=== PATIENT | female | born 1980 | race Caucasian/White ===

== ENCOUNTER 2017-05-09 16:53 | Inpatient (IN) | payer MEDICAID ==
[~2017-05-09] VITALS: Ht 152.4 cm; Wt 113.5 kg
[~2017-05-09 16:53] MED LIST: OXYTOCIN 30 UNITS/LR 500 ML BAG IV ONE; PREN1TAB12 PO
--- NOTE | 2017-05-09 17:34 | RADRPT ---
PROCEDURE: US OB biophysical profile. CLINICAL INDICATION: evaluation, high blood pressure TECHNIQUE: Multiple sonographic images of the pelvis were obtained. The images were reviewed on a PACS workstation. COMPARISON: No prior studies are available for comparison. FINDINGS: There is a single viable intrauterine gestation. Cardiac activity is present with 139 beats per min anahi. There is a vertex presentation. The placenta is fundal. There is no evidence of placental abruption. There is a normal amount of amniotic fluid with an BRAYDEN = 13.6 cm. Biophysical profile: movement 2/2 tone 2/2. breathing 2/2 BRAYDEN 2/2 Total 05/17 RPTAT: AA . IMPRESSION: Normal biophysical profile. Physician Elvis Date Time Electronically viewed and signed by Physician Elvis on 05/09/2017 17:34 /
[2017-05-09 17:45] LABS: BASOPHILS % 0.5 % (0.0-2.0); EOSINOPHILS # 0.1 10^3/ul (0.0-0.5); EOSINOPHILS % 1.1 % (0.0-7.0); HEMATOCRIT 29.7 % (37.0-47.0); HEMOGLOBIN 9.6 g/dl (12.0-16.0); LYMPHOCYTES % 33.1 % (15.0-51.0); MEAN CORPUSCULAR HEMOGLOBIN 23.9 pg (29.0-33.0); MEAN CORPUSCULAR HGB CONC 32.3 g/dl (32.0-37.0); MEAN CORPUSCULAR VOLUME 74.1 fl (82.0-101.0); MONOCYTE # 0.4 10^3/ul (0.3-0.9); MONOCYTES % 6.7 % (0.0-11.0); NEUTROPHIL # 3.5 10^3/ul (1.6-7.5); NEUTROPHILS % 58.1 % (39.0-77.0); PLATELET COUNT 203 10^3/UL (140-415); RED BLOOD COUNT 4.01 10^6/ul (4.20-5.40); RED CELL DISTRIBUTION WIDTH 14.6 % (11.5-14.5); WHITE BLOOD COUNT 6.1 10^3/ul (4.8-10.8)
[2017-05-09 17:58] VITALS: Ht 152.4 cm; Wt 113.5 kg
[2017-05-09 17:59] VITALS: BP 128/63; PULSE 67; RESP 18
[2017-05-09] MEDS ORDERED: AMO500 PO (18:05)
[2017-05-09 18:13] LABS: ALBUMIN 3.2 g/dl (3.3-4.9); ALBUMIN/GLOBULIN RATIO 0.84; BILIRUBIN,INDIRECT 0.1 mg/dl (0-1.1); BILIRUBIN,TOTAL 0.1 mg/dl (0.2-1.3); CALCIUM 8.6 mg/dl (8.4-10.2); CREATININE 0.65 mg/dl (0.44-1.00); POTASSIUM 4.3 mmol/L (3.5-5.1); URIC ACID 5.3 mg/dl (3.1-7.9)
--- NOTE | 2017-05-09 18:59 | TRIAGE ---
OB Triage Datetime Report Generated by CPN: 05/09/2017 18:59 Datetime: 05/09/2017 18:42 Labor Evaluation Frequency: 3-4 Monitor Mode: External Duration (sec)2399: 50-80 Quality: Mild Pattern: Normal: <= 5 Contractions in 10 Minutes Resting Tone [place]: Relaxed Heart Rate FHR Baseline Rate: 150 Monitor Mode: External US FHR Baseline Changes: No Baseline Change Variability: Moderate 6-25 bpm Accelerations: 15X15 Decelerations: None Category: Category I Vaginal Exam Membrane Status: Intact Datetime: 05/09/2017 18:16 Labor Evaluation Frequency: 3-5 Monitor Mode: External Duration (sec)2399: 60-80 Quality: Mild Pattern: Normal: <= 5 Contractions in 10 Minutes Resting Tone [place]: Relaxed Heart Rate FHR Baseline Rate: 150 Monitor Mode: External US FHR Baseline Changes: No Baseline Change Variability: Moderate 6-25 bpm Accelerations: 15X15 Decelerations: None Category: Category I Datetime: 05/09/2017 17:52 Headache: Denies Labor Evaluation Frequency: x2 Monitor Mode: External Duration (sec)2399: 60-70 Quality: Mild Pattern: Normal: <= 5 Contractions in 10 Minutes Resting Tone [place]: Relaxed Heart Rate FHR Baseline Rate: 150 Monitor Mode: External US FHR Baseline Changes: No Baseline Change Variability: Moderate 6-25 bpm Accelerations: 15X15 Decelerations: None Category: Category I Vaginal Exam Membrane Status: Intact Datetime: 05/09/2017 17:18 Stage of : OB Triage Time of Arrival: 05/09/2017 16:46 EGA: 38.5 Arrived By: Ambulatory Arrived From: Office Chief Complaint: R/O PIH Movement: Present Rupture of Membranes: Denies Vaginal Discharge: Denies Recent Sexual Intercouse: Denies Abdominal Trauma: Not Applicable Patient Complaints: Other Time Provider Notified: 05/09/2017 17:38 Provider Notified: DELSHAD Initial Plan: PIH PANEL, CBC, CMP, URIC ACID, UA, U/S EFW, Maternal Assessment Level of Consciousness: Fully Conscious DTR's/Clonus: DTRs 2+; No Clonus Headache: Denies Blurred Vision: No Respiratory Effort: Unlabored Breath Sounds, Left: Clear and Equal Breath Sounds, Right: Clear and Equal Nausea/Vomiting: Denies RUQ Epigastric Pain: Denies Facial Edema: None Labor Evaluation Frequency: X1 Monitor Mode: External Duration (sec)2399: 50 Quality: Mild Pattern: Normal: <= 5 Contractions in 10 Minutes Resting Tone [place]: Relaxed Heart Rate FHR Baseline Rate: 150 Monitor Mode: External US FHR Baseline Changes: No Baseline Change Variability: Moderate 6-25 bpm Accelerations: 15X15 Decelerations: None Category: Category I Pain Assessment Pain Scale: 2 Pain Presence: Intermittent Pain Type: Contraction Pain Location: Abdomen Pain Goal: 10 Pain Relief Measures: Comfort Measures Vaginal Exam Membrane Status: Intact
[2017-05-09] MEDS ORDERED: OXYTOCIN 30 UNITS/LR 500 ML IV PRN (19:30)
[2017-05-09] MEDS ORDERED: MISOPROSTOL 200 MCG TAB PR PRN (19:30)
[2017-05-09] MEDS ORDERED: CARBOPROST 250 MCG INJ IM PRN (19:30)
[2017-05-09] MEDS ORDERED: CEFAZOLIN 2 GM/50 ML (PMX) 50 ML IV SCH (19:30)
[2017-05-09] MEDS ORDERED: OXYTOCIN 30 UNITS/LR 500 ML IV SCH (19:30)
[2017-05-09] MEDS ORDERED: METHYLERGONOVINE 0.2 MG INJ IM PRN (19:30)
[2017-05-09] MEDS ORDERED: DEXTROSE 5%-LR 1,000 ML IV SCH (19:38)
[2017-05-09] MEDS ORDERED: FAMOTIDINE 20 MG INJ IV ONE (20:00)
[2017-05-09 20:18] LABS: ADD UMIC YES; UR ASCORBIC ACID NEGATIVE (NEGATIVE); UR BACTERIA FEW /HPF (NONE SEEN); UR BILIRUBIN (Dip) NEGATIVE (NEGATIVE); UR BLOOD (Dip) 1+ mg/dL (NEGATIVE); UR CLARITY CLEAR (CLEAR); UR COLOR YELLOW (YELLOW); UR GLUCOSE (Dip) NEGATIVE (NEGATIVE); UR KETONES (Dip) NEGATIVE (NEGATIVE); UR LEUKOCYTE ESTERASE (Dip) 2+ Leu/ul (NEGATIVE); UR NITRITE (Dip) NEGATIVE (NEGATIVE); UR RBC 2 /HPF (0-5); UR SPECIFIC GRAVITY (Dip) 1.012 (1.003-1.030); UR SQUAMOUS EPITHELIAL CELL FEW /HPF (FEW); UR TOTAL PROTEIN (Dip) 2+ mg/dl (NEGATIVE); UR UROBILINOGEN (Dip) NEGATIVE (NEGATIVE)
[2017-05-09 20:25] LABS: INR 0.89; PT RATIO 0.9
[2017-05-09] MEDS ORDERED: LACTATED RINGER'S 1,000 ML IV SCH (20:30)
[2017-05-09] MEDS ORDERED: METOCLOPRAMIDE 10 MG INJ IV ONE (21:00)
[2017-05-09] MEDS ORDERED: EPHEDrine SULFATE 50 MG/5 ML SYG ONE (21:01)
[2017-05-09] MEDS ORDERED: PHENYLephrine (100 MCG/ML) 5ML SYG ONE (21:01)
[2017-05-09] MEDS ORDERED: morphine SULFATE/PF (10 MG/10 ML) INJ ONE (21:01)
[2017-05-09] MEDS ORDERED: FENTAnyl 50 MCG/ML VIAL ONE (21:01)
[2017-05-09] MEDS ORDERED: ONDANSETRON 4 MG INJ ONE (21:22)
[2017-05-09] MEDS ORDERED: TRIMETHOBENZAMIDE 100 MG/ML VIAL IM PRN (22:00)
[2017-05-09] MEDS ORDERED: NALOXONE (0.4 MG/ML) INJ IV PRN (22:00)
[2017-05-09] MEDS ORDERED: ZOLPIDEM 5 MG TAB PO PRN (22:00)
[2017-05-09] MEDS ORDERED: ONDANSETRON 4 MG INJ IV PRN (22:00)
[2017-05-09] MEDS ORDERED: DIPHENHYDRAMINE 50 MG INJ IV PRN (22:00)
[2017-05-09] MEDS ORDERED: NALBUPHINE HCL (10 MG/1 ML) INJ IV PRN (22:00)
[2017-05-10] VITALS (9 sets, daily range): BP systolic 115–152; BP diastolic 69–86; PULSE 58–64; RESP 18–20
[2017-05-10] MEDS: KETOROLAC 30 MG INJ IV PRN ×4 (00:22→21:16)
--- NOTE | 2017-05-10 00:36 | PREOPHP ---
DATE OF ADMISSION: 05/09/2017 HISTORY OF PRESENT ILLNESS: A 37-year-old female, 4, para 2-0-1-2. Estimated date of delivery 05/18/2017 38 weeks and 5 days who was noted to have high blood pressure. PAST MEDICAL HISTORY: Unremarkable. PAST SURGICAL HISTORY: section x2. ALLERGIES: NO KNOWN ALLERGIES. FAMILY HISTORY: Diabetes. COURSE: Significant for gestational diabetes. PHYSICAL EXAMINATION: VITAL SIGNS: The patient is afebrile. Blood pressure, 130's to 140s over 80s and 90s. HEENT: Within normal limits. NECK: Within normal limits. CHEST: Within normal limits. ABDOMEN: Soft, nontender, and gravid. EXTREMITIES: Within normal limits. NEUROLOGIC: Within normal limits. IMPRESSION: 1. at 38 weeks and 5 days. 2. Gestational diabetes. 3. Previous section x2. 4. Preeclampsia. PLAN: Repeat section. Risks, benefits, and alternatives of procedure were explained to the patient. The patient said she understood and gave informed consent for the procedure. Dictated By: Martin Delgado MD /[email or web address] /Document#: [id number] ANGELIC
--- NOTE | 2017-05-10 01:12 | OPR ---
DATE OF OPERATION: 05/09/2017 PREOPERATIVE DIAGNOSES: 1. at 38 weeks and 5 days with previous section x2. 2. Gestational diabetes. 3. Preeclampsia. POSTOPERATIVE DIAGNOSIS: 1. at 38 weeks and 5 days with previous section x2. 2. Gestational diabetes. 3. Preeclampsia. OPERATION: Repeat low transverse section. SURGEON: Martin Delgado MD PLEAT TAPER: Debi Wagner MD ANESTHESIA: Spinal. ANESTHESIOLOGIST: Andrew Rai MD OPERATIVE PROCEDURE: The patient was taken to the operating room and placed on the operating table. After successful spinal anesthesia was given, the patient was positioned in the Trendelenburg position. The abdomen was prepared and draped in the usual sterile fashion. Spinal anesthesia was assessed and was satisfactory. Using a scalpel, a Pfannenstiel skin incision was made about 2 fingerbreadths above the symphysis pubis. The incision was extended to the fascia. The fascia was incised and extended bilaterally with Burnham scissors. Two Kochers were used to separate the fascia from the muscle and the muscle was dissected down to the peritoneum. The peritoneum was secured with 2 Kellys was incised with Metzenbaum scissors. Using a scalpel, a small transverse incision was made on the lower segment of the uterus, obtaining entry into the uterine cavity. Bandage scissors used to extend the incision bilaterally. Carefully, the baby was delivered from cephalic presentation. After suction of amniotic fluid, the infant was handed off to the team in attendance. score was 8 and 9. The placenta was then delivered without difficulty. The uterus was closed with number 1 Monocryl continuous locked fashion with hemostasis. Both ovaries and tubes were inspected and all looked normal. The peritoneal cavity was irrigated with warm normal saline. The peritoneum was closed with 2-0 Vicryl continuous, the fascia was closed with number 1 Vicryl continuous in 2 segments, subcutaneous tissue was reapproximated with 2-0 plain, and the skin was closed with jack. Estimated blood loss was 500 mL. Complications none. All counts were correct. Dictated By: Maritn Delgado MD /[email or web address] /Document#: [id number]
[2017-05-10] MEDS: LACTATED RINGER'S 1,000 ML IV SCH ×3 (01:37→20:09)
[2017-05-10] MEDS ORDERED: MISOPROSTOL 200 MCG TAB PR PRN (02:00)
[2017-05-10] MEDS ORDERED: CARBOPROST 250 MCG INJ IM PRN (02:00)
[2017-05-10] MEDS ORDERED: OXYCODONE/ACETAMINOPHEN (5/325) TAB PO PRN (02:00)
[2017-05-10] MEDS ORDERED: OXYTOCIN 30 UNITS/LR 500 ML IV PRN (02:00)
[2017-05-10] MEDS ORDERED: METHYLERGONOVINE 0.2 MG INJ IM PRN (02:00)
[2017-05-10] MEDS: OXYTOCIN 30 UNITS/LR 500 ML IV SCH ×2 (02:37→06:14)
[2017-05-10] MEDS: LANOLIN 7 GM TUBE TOP PRN (06:14)
[2017-05-10] MEDS: SENNA/DOCUSATE NA (8.6MG/50MG) TAB PO SCH ×2 (08:58→20:09)
[2017-05-10 09:13] LABS: BASOPHILS % 0.3 % (0.0-2.0); EOSINOPHILS % 0.1 % (0.0-7.0); HEMATOCRIT 29.9 % (37.0-47.0); HEMOGLOBIN 9.4 g/dl (12.0-16.0); LYMPHOCYTES # 1.4 10^3/ul (0.8-2.9); LYMPHOCYTES % 15.7 % (15.0-51.0); MEAN CORPUSCULAR HEMOGLOBIN 23.4 pg (29.0-33.0); MEAN CORPUSCULAR HGB CONC 31.4 g/dl (32.0-37.0); MEAN CORPUSCULAR VOLUME 74.6 fl (82.0-101.0); MEAN PLATELET VOLUME 11.4 fl (7.4-10.4); MONOCYTE # 0.5 10^3/ul (0.3-0.9); MONOCYTES % 5.4 % (0.0-11.0); NEUTROPHIL # 7.1 10^3/ul (1.6-7.5); NEUTROPHILS % 78.1 % (39.0-77.0); PLATELET COUNT 207 10^3/UL (140-415); RED BLOOD COUNT 4.01 10^6/ul (4.20-5.40); RED CELL DISTRIBUTION WIDTH 14.7 % (11.5-14.5); WHITE BLOOD COUNT 9.1 10^3/ul (4.8-10.8)
--- NOTE | 2017-05-10 11:18 | QN ---
Documentation Comment No complaint Afebrile VSS Abdomen soft ND POD #1 Stable Ambulate Advance diet. TERI RIVERA MD May 10, 2017 11:18
[2017-05-10] MEDS ORDERED: LACTATED RINGER'S 1,000 ML IV ONE (11:30)
[2017-05-10] MEDS: IBUPROFEN 800 MG TAB PO SCH (22:00)
[2017-05-11] MEDS: LACTATED RINGER'S 1,000 ML IV SCH (01:37)
[2017-05-11 04:00] VITALS: BP 118/75; PULSE 66; RESP 17
[2017-05-11] MEDS: IBUPROFEN 800 MG TAB PO SCH ×3 (05:35→21:36)
[2017-05-11] MEDS: SENNA/DOCUSATE NA (8.6MG/50MG) TAB PO SCH ×2 (08:02→21:36)
[2017-05-11 08:03] VITALS: BP 134/74; PULSE 59; RESP 19
[2017-05-11] MEDS: OXYCODONE/ACETAMINOPHEN (5/325) TAB PO PRN ×2 (08:03→17:36)
[2017-05-11 16:00] VITALS: BP 138/81; PULSE 62; RESP 19
[2017-05-11 19:50] VITALS: BP 136/76; PULSE 67; RESP 18
--- NOTE | 2017-05-11 22:31 | QN ---
Documentation Comment No complaint Afebrile VSS Abdomen soft Stable Continue present care. TERI RIVERA MD May 11, 2017 22:31
[2017-05-12] MEDS: OXYCODONE/ACETAMINOPHEN (5/325) TAB PO PRN ×3 (01:15→17:58)
[2017-05-12 03:30] VITALS: BP 154/91; PULSE 58; RESP 18
[2017-05-12] MEDS: IBUPROFEN 800 MG TAB PO SCH ×2 (05:30→13:33)
[2017-05-12 07:25] VITALS: BP_SYST 126; BP_SYST 137; BP_DIAS 78; BP_DIAS 81; PULSE 72; RESP 19
[2017-05-12] MEDS ORDERED: DIPHTH/TET/ACEL PERTUSS (ADULT) 0.5 ML VIAL IM* ONE (09:00)
[2017-05-12] MEDS: SENNA/DOCUSATE NA (8.6MG/50MG) TAB PO SCH ×2 (09:55→21:00)
[2017-05-12] MEDS: LANOLIN 7 GM TUBE TOP PRN (13:38)
[2017-05-12 16:03] VITALS: BP 137/81; PULSE 65; RESP 18
[2017-05-12] MEDS ORDERED: IBUP800T25 PO (20:20)
--- NOTE | 2017-05-12 20:22 | DS ---
Date/Time of Note Date/Time of Note DATE: 05/12/17 TIME: 20:20 Obstetrical Discharge Record Final Diagnosis Final Diagnosis: Term delivered Section Section: Repeat Complications Preg induced Hypertension Condition on Discharge Physical Assessment Voiding: Yes Bowel Movement: Yes Breast: Soft, non-tender Fundus: Firm Abdomen and Incision: Incision intact Calf Tenderness: No Patient Condition: Stable TERI RIVERA MD May 12, 2017 20:22
[2017-05-12 20:27] VITALS: BP 136/85; PULSE 72; RESP 18
== END 2017-05-12 21:19 | disposition home or self-care (01) | DRG 765 ==
LOC: OBT 16:53 → L-D 16:53 → OBT 18:54 → L-D 18:54 → PP1 05-10 01:14
PROVIDERS: ADMIT Obstetrics & Gynecology; ATTEND Obstetrics & Gynecology
PROC: 3E033VJ Introduction of Other Hormone into Peripheral Vein, Percutaneous Approach (ICD-10-PCS; 2017-05-09)
PROC: 10D00Z1 Extraction of Products of Conception, Low, Open Approach (ICD-10-PCS; principal; 2017-05-09 21:00)
DX: O34.211 Maternal care for low transverse scar from previous cesarean delivery (principal); Z68.42 Body mass index [BMI] 45.0-49.9, adult; O24.429 Gestational diabetes mellitus in childbirth, unspecified control; O14.94 Unspecified pre-eclampsia, complicating childbirth; O99.214 Obesity complicating childbirth; E66.9 Obesity, unspecified; Z3A.38 38 weeks gestation of pregnancy; Z37.0 Single live birth
CPT/HCPCS: 76818; 80053; 81001; 82962; 84560; 85025; 85610; 85730; 86592; 86850; 86900; 86901; 87340; 90715; 99464; G0463; J0690; J1885; J2274; J2370; J2405; J2590; J2765; J3010; J7120; J7121

== ENCOUNTER 2017-05-16 15:18 | Inpatient (IN) | payer MEDICAID ==
[~2017-05-16] VITALS: Ht 157.5 cm; Wt 106.0 kg
[~2017-05-16 15:18] MED LIST changes: +IBUP800T25 PO; -OXYTOCIN 30 UNITS/LR 500 ML BAG IV ONE
[2017-05-16 15:19] VITALS: Ht 157.5 cm; Wt 106.0 kg
[2017-05-16 16:34] LABS: BASOPHILS % 0.5 % (0.0-2.0); EOSINOPHILS # 0.1 10^3/ul (0.0-0.5); EOSINOPHILS % 2.2 % (0.0-7.0); HEMATOCRIT 29.3 % (37.0-47.0); HEMOGLOBIN 9.2 g/dl (12.0-16.0); LYMPHOCYTES # 1.1 10^3/ul (0.8-2.9); LYMPHOCYTES % 17.3 % (15.0-51.0); MEAN CORPUSCULAR HEMOGLOBIN 23.6 pg (29.0-33.0); MEAN CORPUSCULAR HGB CONC 31.4 g/dl (32.0-37.0); MEAN CORPUSCULAR VOLUME 75.1 fl (82.0-101.0); MONOCYTE # 0.4 10^3/ul (0.3-0.9); MONOCYTES % 7.1 % (0.0-11.0); NEUTROPHIL # 4.5 10^3/ul (1.6-7.5); NEUTROPHILS % 72.3 % (39.0-77.0); PLATELET COUNT 286 10^3/UL (140-415); RED CELL DISTRIBUTION WIDTH 15.6 % (11.5-14.5); WHITE BLOOD COUNT 6.2 10^3/ul (4.8-10.8)
--- NOTE | 2017-05-16 16:45 | RADRPT ---
PROCEDURE: US Pelvis. CLINICAL INDICATION: pelvic pain TECHNIQUE: Multiple sonographic images of the pelvis were obtained utilizing a transabdominal and endovaginal technique. The images were reviewed on a PACS workstation. COMPARISON: 05/09/2017 FINDINGS: The uterus is enlarged in size. The uterus measures 18.5 x 9.3 x 14.6 cm. The endometrial stripe is heterogeneous and thickened in appearance and has the thickness of 40 mm. There is fluid noted in the endometrial canal. There is no increased vascularity. The ovaries are not visualized. No free fluid is present within the pelvis. RPTAT: AA IMPRESSION: Enlarged post gravid uterus with a thickened and heterogeneous endometrium. No increased vascularit y is noted. The findings may represent a retained hematoma. Follow-up ultrasound is recommended. .Giorgio Upton MD, MD Date Time Electronically viewed and signed by .Giorgio Upton MD, MD on 05/16/2017 16:45 .S/
[2017-05-16 16:53] LABS: ALBUMIN 3.1 g/dl (3.3-4.9); ALBUMIN/GLOBULIN RATIO 0.81; BILIRUBIN,INDIRECT 0.2 mg/dl (0-1.1); BILIRUBIN,TOTAL 0.2 mg/dl (0.2-1.3); CALCIUM 8.1 mg/dl (8.4-10.2); CREATININE 0.59 mg/dl (0.44-1.00); POTASSIUM 4.2 mmol/L (3.5-5.1); TOTAL PROTEIN 6.9 g/dl (6.1-8.1)
[2017-05-16 16:54] LABS: INR 0.91; PROTIME 12.2 Sec (12.2-14.2)
[2017-05-16 16:55] LABS: PARTIAL THROMBOPLASTIN TIME 24.3 Sec (25.0-35.0)
--- NOTE | 2017-05-16 16:58 | ERD ---
ER Documentation Chief Complaint Date/Time DATE: 05/16/17 TIME: 16:52 Chief Complaint Sent from for eval Post Placenta Previa HPI This is a very pleasant 37-year-old female that presents to the emergency department after sent by her BUSINESS DEVELOPMENT ASSISTANT Dr. Can for evaluation and possible preeclampsia. The patient had a section performed May 09, 2017, 7 days prior to arrival. The patient was seen postoperatively today in the clinic of her BUSINESS DEVELOPMENT ASSISTANT and had an elevated blood pressure of 178/94. The patient has no history of hypertension. The patient indicates she has had no fevers or shaking no chills. The patient states this is not her first she did not have a significant amount of weight gain and denies any swelling of her lower extremities. She denies any abdominal pain. She has no shortness of breath. She denies a headache or visual changes. She denies any frequency urgency or dysuria or gross hematuria. The patient does not wear glasses or contacts. The patient denies any confusion and her is present states there is been no changes in her mental status. She has no shortness of breath at rest or exertion. She has had no seizure-like activity. ROS All systems reviewed and are negative except as per history of present illness. Medications Home Meds Active Scripts Ibuprofen* (Ibuprofen*) 800 Mg Tablet, 800 MG PO Q8 Y for PAIN, #30 TAB 0 Refills Prov:TERI RIVERA MD 05/12/17 Reported Medications Vit/Fe Fumarate/Fa ( 1-1 Tablet) 1 Tab Tablet, 1 TAB PO DAILY 10/25/12 Discontinued Reported Medications Amoxicillin* (Amoxicillin*) 500 Mg Cap, 500 MG PO BID, #20 CAP 05/09/17 Allergies Allergies: Coded Allergies: No Known Drug Allergies (Verified Allergy, Unknown, 05/09/17) PMhx/Soc History of Surgery: No Anesthesia Reaction: No Hx Neurological Disorder: No Hx Respiratory Disorders: No Hx Cardiac Disorders: Yes (HTN) Hx Psychiatric Problems: No Hx Miscellaneous Medical Probl: No Hx Alcohol Use: No Hx Substance Use: No Hx Tobacco Use: No Smoking Status: Never smoker Physical Exam Vitals Vital Signs Date Time Temp Pulse Resp B/P Pulse Ox O2 Delivery O2 Flow Rate FiO2 05/16/17 17:34 98.9 60 18 185/98 100 Room Air 05/16/17 15:19 99.0 72 20 182/86 98 Physical Exam Constitutional:Well-developed. Well-nourished. HEENT:Normocephalic. Atraumatic.Pupils were equal round reactive to light. Moist mucous membranes.No tonsillar exudates. Funduscopy exam shows sharp optic disc bilaterally venous pulsations are present. Visual acuity is 20/20 bilaterally Neck: No nuchal rigidity. No lymphadenopathy. No posterior cervical spine tenderness or step-offs. Respiratory: Not using accessory muscles of respiration.Lungs were clear to auscultation bilaterally. No rhonchi. No rales. No wheezing. Cardiovascular: Regular rate regular rhythm.No murmurs. No rubs were appreciated.S1, S2 normal. Distal pulses are palpable 2+ bilaterally. GI: Abdomen was obese. Nontender. Horizontal surgical incision scar from previous section is clean dry and intact with no wound dehiscence. No reproducible tenderness in the epigastric or right upper quadrant. Non Distended. No pulsatile abdominal masses or bruits. No rebound. No guarding. Bowel sounds were present and normal. Muscle skeletal: Full range of motion of both the upper and lower extremities bilaterally.Normal muscle tone.No assymetrical calf tenderness or swelling. Skin: No petechia, no purpura. No lesions on the palms or the soles of the feet. No maculopapular rash. NEURO: Patient was alert, awake, orientated x3.No facial droop. Gait observed and normal with no ataxia.Speech had regular rate and rhythm. No focal neurological deficits. Deep tendon reflexes were normal with no hyperreflexia. Result Diagram: 05/16/17 1615 05/16/17 1615 Results 24 hrs Laboratory Tests Test 05/16/17 16:15 05/16/17 16:45 White Blood Count 6.210^3/ul Red Blood Count 3.9010^6/ul Hemoglobin 9.2g/dl Hematocrit 29.3% Mean Corpuscular Volume 75.1fl Mean Corpuscular Hemoglobin 23.6pg Mean Corpuscular Hemoglobin Concent 31.4g/dl Red Cell Distribution Width 15.6% Platelet Count 11934^3/UL Mean Platelet Volume 10.0fl Neutrophils % 72.3% Lymphocytes % 17.3% Monocytes % 7.1% Eosinophils % 2.2% Basophils % 0.5% Nucleated Red Blood Cells % 0.0/100WBC Neutrophils # 4.510^3/ul Lymphocytes # 1.110^3/ul Monocytes # 0.410^3/ul Eosinophils # 0.110^3/ul Basophils # 0.010^3/ul Nucleated Red Blood Cells # 0.010^3/ul Prothrombin Time 12.2Sec Prothrombin Time Ratio 1.0 INR International Normalized Ratio 0.91 Activated Partial Thromboplast Time 24.3Sec Sodium Level 142mmol/L Potassium Level 4.2mmol/L Chloride Level 104mmol/L Carbon Dioxide Level 25mmol/L Anion Gap 17 Blood Urea Nitrogen 14mg/dl Creatinine 0.59mg/dl Glucose Level 91mg/dl Uric Acid 5.5mg/dl Calcium Level 8.1mg/dl Total Bilirubin 0.2mg/dl Direct Bilirubin 0.00mg/dl Indirect Bilirubin 0.2mg/dl Aspartate Amino Transf (AST/SGOT) 52IU/L Alanine Aminotransferase (ALT/SGPT) 77IU/L Alkaline Phosphatase 162IU/L Troponin I < 0.012ng/ml Total Protein 6.9g/dl Albumin 3.1g/dl Globulin 3.80g/dl Albumin/Globulin Ratio 0.81 Urine Color YELLOW Urine Clarity CLEAR Urine pH 6.0 Urine Specific [place] 1.012 Urine Ketones NEGATIVEmg/dL Urine Nitrite NEGATIVEmg/dL Urine Bilirubin NEGATIVEmg/dL Urine Urobilinogen NEGATIVEmg/dL Urine Leukocyte Esterase NEGATIVELeu/ul Urine Microscopic RBC 1/HPF Urine Microscopic WBC 1/HPF Urine Hemoglobin 1+mg/dL Urine Glucose NEGATIVEmg/dL Urine Total Protein 2+mg/dl Current Medications Medications (Trade) Dose Ordered Sig/Clari Route PRN Reason Start Time Stop Time Status Last Admin Dose Admin Clonidine (Catapres) 0.1 mg ONCE ONCE PO 05/16/17 17:30 05/16/17 17:31 DC 05/16/17 17:33 Procedures/MDM This patient presented to the emergency department with an elevated blood pressure in the clinic of her BUSINESS DEVELOPMENT ASSISTANT of 178/. The patient underwent a section roughly 7 days prior to arrival my differential diagnosis included but was not limited to essential hypertension, renal collagen vascular disease, drug abuse, epilepsy, encephalitis, meningitis, encephalopathy, brain tumor, intracerebral hemorrhage, preeclampsia versus eclampsia. The patient was placed in a cardiac sonographer continuous pulse oximetry and IV access was established by nursing staff. The patient had no reproducible epigastric or right upper quadrant pain that could mimic cholelithiasis due to hepatocellular necrosis with edema. The patient had not experienced any abdominal pain with nausea and vomiting. The patient had no hyperreflexia and no thrombocytopenia. The patient did not have any severe or worsening headaches. There is no visual disturbances including blindness. The patient's serum uric acid was 5.5 which can be considered elevated and the woman after speaking with Dr. Rivera. The patient had 2+ proteinuria on her urinalysis which requires 24-hour urine collection. The patient had a very mild elevation in her liver function tests but had normal platelet function and therefore no evidence of HELLP syndrome at this time. 12 Lead EKG tracing ordered and reviewed by myself showed: Normal sinus rhythm of 61 bpm and no arrhythmia. AK interval normal. QRS duration normal. No ST segment elevation No ST segment depression. No changes consistent with acute ischemia. At this time the patient was placed on magnesium sulfate for seizure prophylaxis and will be monitored closely for toxicity watching for hypotension , loss of patellar reflex, respiratory depression. The patient was given 4 g infusion of Magnessium as requested by Dr. Rivera. The patient also received 10 mg of IV labetalol to treat the hypertension. The magnesium sulfate bolus will not exceed 1 g/min. Critical Care: Time: 45 minutes Treatments/Evaluations: Close monitoring and treatment of unstable vital signs, cardiorespiratory, and neurologic status, while maintaining tight balance of fluid, respiratory, and cardiac interventions. Time does not include performing any of the above billable procedures. Departure Diagnosis: Primary Impression: Pre-eclampsia in period Condition: Serious CARLYLE BLACKWELL May 16, 2017 16:58
[2017-05-16 17:10] LABS: ADD UMIC YES; UR ASCORBIC ACID NEGATIVE (NEGATIVE); UR BILIRUBIN (Dip) NEGATIVE (NEGATIVE); UR BLOOD (Dip) 1+ mg/dL (NEGATIVE); UR CLARITY CLEAR (CLEAR); UR COLOR YELLOW (YELLOW); UR GLUCOSE (Dip) NEGATIVE (NEGATIVE); UR KETONES (Dip) NEGATIVE (NEGATIVE); UR LEUKOCYTE ESTERASE (Dip) NEGATIVE Leu/ul (NEGATIVE); UR NITRITE (Dip) NEGATIVE (NEGATIVE); UR RBC 1 /HPF (0-5); UR SPECIFIC GRAVITY (Dip) 1.012 (1.003-1.030); UR TOTAL PROTEIN (Dip) 2+ mg/dl (NEGATIVE); UR UROBILINOGEN (Dip) NEGATIVE (NEGATIVE)
[2017-05-16 17:34] VITALS: TEMP 98.9
[2017-05-16] MEDS ORDERED: ACETAMINOPHEN 325 MG TAB PO PRN ×2 (19:00→21:00)
[2017-05-16] MEDS ORDERED: ONDANSETRON 4 MG INJ IV PRN ×2 (19:00→21:00)
[2017-05-16] MEDS ORDERED: MAGNESIUM SULFATE 4 GM/100 ML 100 ML IVPB ONE ×2 (19:00→20:45)
[2017-05-16] MEDS ORDERED: LABETALOL HCL 20MG INJ IV ONE (19:00)
[2017-05-16] MEDS: LACTATED RINGER'S 1,000 ML IV SCH (21:07)
[2017-05-16] MEDS: MAGNESIUM SULFATE 20 GM/500 ML 500 ML IV SCH (21:53)
[2017-05-16 23:29] VITALS: BP 156/92; PULSE 56; RESP 18
[2017-05-17 01:13] VITALS: BP 132/93; PULSE 57; RESP 18
[2017-05-17 02:45] VITALS: BP 151/93; PULSE 68; RESP 18
[2017-05-17 04:18] VITALS: BP 143/81; PULSE 70; RESP 18
[2017-05-17 05:29] VITALS: BP 153/96; PULSE 61; RESP 18
[2017-05-17 06:29] VITALS: BP 155/93; PULSE 66; RESP 18
[2017-05-17 06:33] LABS: BASOPHIL # 0.1 10^3/ul (0.0-0.1); BASOPHILS % 0.8 % (0.0-2.0); EOSINOPHILS # 0.2 10^3/ul (0.0-0.5); EOSINOPHILS % 2.9 % (0.0-7.0); HEMATOCRIT 30.5 % (37.0-47.0); HEMOGLOBIN 9.3 g/dl (12.0-16.0); LYMPHOCYTES # 1.3 10^3/ul (0.8-2.9); LYMPHOCYTES % 20.8 % (15.0-51.0); MEAN CORPUSCULAR HGB CONC 30.5 g/dl (32.0-37.0); MEAN CORPUSCULAR VOLUME 75.3 fl (82.0-101.0); MEAN PLATELET VOLUME 10.2 fl (7.4-10.4); MONOCYTE # 0.5 10^3/ul (0.3-0.9); MONOCYTES % 7.4 % (0.0-11.0); NEUTROPHIL # 4.2 10^3/ul (1.6-7.5); NEUTROPHILS % 67.6 % (39.0-77.0); PLATELET COUNT 314 10^3/UL (140-415); RED BLOOD COUNT 4.05 10^6/ul (4.20-5.40); RED CELL DISTRIBUTION WIDTH 15.9 % (11.5-14.5); WHITE BLOOD COUNT 6.2 10^3/ul (4.8-10.8)
[2017-05-17] MEDS: MAGNESIUM SULFATE 20 GM/500 ML 500 ML IV SCH ×2 (07:12→17:40)
[2017-05-17 07:13] LABS: ALBUMIN 3.4 g/dl (3.3-4.9); ALBUMIN/GLOBULIN RATIO 0.94; BILIRUBIN,INDIRECT 0.3 mg/dl (0-1.1); BILIRUBIN,TOTAL 0.3 mg/dl (0.2-1.3); CALCIUM 7.4 mg/dl (8.4-10.2); CREATININE 0.66 mg/dl (0.44-1.00); POTASSIUM 4.2 mmol/L (3.5-5.1); URIC ACID 5.9 mg/dl (3.1-7.9)
[2017-05-17] MEDS: LACTATED RINGER'S 1,000 ML IV SCH ×2 (09:18→22:18)
[2017-05-17] MEDS: ACETAMINOPHEN 500 MG TAB PO PRN ×2 (11:10→22:44)
--- NOTE | 2017-05-17 11:17 | HP ---
DATE OF ADMISSION: 05/16/2017 HISTORY OF PRESENT ILLNESS: A 37-year-old female, 4, para 3-0-1-3, who is status post repeat section on May 09, 2017, presented to the emergency department with complaints of elevated blood pressure. The patient had preeclampsia during the last admission; however, at the time of discharge, the patient's blood pressure had improved and patient was asymptomatic. PAST MEDICAL HISTORY: Preeclampsia during last admission. PAST SURGICAL HISTORY: section. ALLERGIES: NO KNOWN ALLERGIES. FAMILY HISTORY: Noncontributory. PHYSICAL EXAMINATION: VITAL SIGNS: The patient is afebrile. Blood pressure in the emergency department systolic of 180, diastolic 100. HEAD AND CHEST AND NECK: Within normal limits. ABDOMEN: Soft, nontender, nondistended. PELVIC: Normal uterus. EXTREMITIES: Bilateral edema. NEUROLOGIC: Within normal limits. WORKUP IN THE EMERGENCY DEPARTMENT: Included urinalysis, which showed 2+ protein in the urine. AST 52, ALT 77. IMPRESSION: preeclampsia with severe features. PLAN: Admit, intravenous magnesium sulfate for seizure prophylaxis, 24-hour urine collection for total protein and creatinine clearance, repeat -induced hypertension panel, monitor blood pressure and antihypertensive medication as needed to control the blood pressure. Dictated By: Martin Delgado MD /[email or web address] /Document#: [id number]
[2017-05-17] MEDS ORDERED: hydrALAzine 20 MG INJ IV ONE (20:30)
--- NOTE | 2017-05-17 23:34 | QN ---
Documentation Comment c/o headache. Afebrile BP elevated Continue IV magnesium sulfate. Will add hydralazine to control BP. TERI RIVERA MD May 17, 2017 23:34
[2017-05-17 23:56] LABS: COLLECTION PERIOD 24 hrs; SCRET 0.66 mg/dl (0.44-1.00)
[2017-05-18 00:20] LABS: COLLECTION PERIOD 24 hrs
[2017-05-18] MEDS ORDERED: hydrALAzine 20 MG INJ IV ONE (04:00)
[2017-05-18] MEDS: MAGNESIUM SULFATE 20 GM/500 ML 500 ML IV SCH (04:09)
[2017-05-18 06:48] LABS: BASOPHILS % 0.4 % (0.0-2.0); EOSINOPHILS # 0.2 10^3/ul (0.0-0.5); EOSINOPHILS % 3.2 % (0.0-7.0); HEMATOCRIT 33.8 % (37.0-47.0); HEMOGLOBIN 10.5 g/dl (12.0-16.0); LYMPHOCYTES # 1.2 10^3/ul (0.8-2.9); LYMPHOCYTES % 21.6 % (15.0-51.0); MEAN CORPUSCULAR HEMOGLOBIN 23.2 pg (29.0-33.0); MEAN CORPUSCULAR HGB CONC 31.1 g/dl (32.0-37.0); MEAN CORPUSCULAR VOLUME 74.8 fl (82.0-101.0); MEAN PLATELET VOLUME 9.3 fl (7.4-10.4); MONOCYTE # 0.5 10^3/ul (0.3-0.9); NEUTROPHIL # 3.7 10^3/ul (1.6-7.5); NEUTROPHILS % 65.4 % (39.0-77.0); PLATELET COUNT 327 10^3/UL (140-415); RED BLOOD COUNT 4.52 10^6/ul (4.20-5.40); RED CELL DISTRIBUTION WIDTH 15.9 % (11.5-14.5); WHITE BLOOD COUNT 5.7 10^3/ul (4.8-10.8)
[2017-05-18 07:16] LABS: ALBUMIN 3.1 g/dl (3.3-4.9); ALBUMIN/GLOBULIN RATIO 0.88; BILIRUBIN,INDIRECT 0.2 mg/dl (0-1.1); BILIRUBIN,TOTAL 0.2 mg/dl (0.2-1.3); CALCIUM 6.1 mg/dl (8.4-10.2); CREATININE 0.61 mg/dl (0.44-1.00); TOTAL PROTEIN 6.6 g/dl (6.1-8.1); URIC ACID 5.8 mg/dl (3.1-7.9)
[2017-05-18] MEDS: NIFEdipine (XL) 30 MG TAB PO SCH ×2 (08:53→21:40)
[2017-05-18] MEDS: LACTATED RINGER'S 1,000 ML IV SCH (11:29)
[2017-05-18] MEDS ORDERED: hydrALAzine 20 MG INJ IV PRN (13:30)
--- NOTE | 2017-05-18 14:57 | CONS ---
DATE OF ADMISSION: 05/16/2017 DATE OF CONSULTATION: 05/18/2017 Date of procedure, May, date of consultation May 18, 2017. REASON FOR CONSULTATION: Hypertension. REQUESTING PHYSICIAN: Dr. Martin Delgado. HISTORY OF PRESENT ILLNESS: Ms. Kerr is a 37-year-old female G3, P3, 0-1-3, who is status post delivery May 09, 2017 and re-presented to the emergency department with complaints of elevated systolic blood pressure May 16. Upon arrival in the emergency department, temperature 99, blood pressure markedly elevated at 182/86, pulse 72, respirations 20, satting 98 percent. Patient's labs, white count 6.2, hemoglobin 9.2, platelet count of 286,000. Sodium 142, potassium 4.2, creatinine 0.5, BUN 14, AST 52, ALT 77, alkaline phosphatase 162. INR 0.9. UA negative. The patient underwent a pelvic ultrasound revealing a large post gravid uterus, with a thickened edges endometrium. Patient's electrocardiogram revealed normal sinus rhythm of 61, normal axis, normal intervals, mild isolated to flatten in the anterior precordial leads. The patient was subsequently admitted to the floor where she remains at this time. The patient has been initiated on Procardia 30 mg p.o. b.i.d. and hydralazine 50 mg p.o. q.6. Patient's most recent blood pressures remain in the 150s from this morning, had been in the 130s. PAST MEDICAL HISTORY: As above in history of present illness. MEDICATION: Currently in the hospital: 1. Procardia 30 mg 1 tab p.o. b.i.d. 2. Hydralazine 50 mg p.o. q.6 3. Tylenol p.r.n. 4. Lactated Ringer's 75 cc an hour. 5. Zofran p.r.n. ALLERGIES: NO KNOWN DRUG ALLERGIES. SOCIAL HISTORY: No tobacco, EtOH. No illicit drug use. FAMILY HISTORY: Negative for sudden cardiac or early CD. REVIEW OF SYSTEMS: As above in history of present illness. CONSTITUTIONAL: No fevers or chills. RESPIRATORY: No current shortness of breath. CARDIOVASCULAR: No current chest pain, but chest pain the day prior. GASTROINTESTINAL: No vomiting. GENITOURINARY: Status post delivery. MUSCULOSKELETAL: No significant arthralgias. ENDOCRINE: Documents diabetes mellitus. PHYSICAL EXAMINATION: VITAL SIGNS: Temperature 98, blood pressure 155/93, pulse 66, respiratory rate 18, satting 97 percent. GENERAL: The patient is alert, awake in no acute distress. NECK: YOSELYN, at approximately 8-9 cm of water. LUNGS: Fair air movement throughout. HEART: Regular rate and rhythm. Normal S1, S2. 1/6 systolic murmur. Nondisplaced PMI. ABDOMEN: Positive bowel sounds. EXTREMITIES: No edema. 1+ pulses bilaterally posterior tibial. LABORATORY: As above in history of present illness. From today: Sodium 140, potassium 4.0, creatinine of 0.6, BUN 9, white blood cell count of 5.7, hemoglobin 10.5, platelet count 327,000. UA negative. IMAGING STUDIES: As above in the history of present illness. No further imaging studies were reviewed. Signed for ECG. IMPRESSION: 1. Hypertension . 2. Chest pain, now resolved, 3. Bradycardia, intermittent. EKG was mild isolated to flatten in the anterior precordial leads. 4. Status post C section delivery, postop day number 7. 5. Anemia. RECOMMENDATIONS: 1. At this time, would maintain patient on Procardia and hydralazine with up titration as necessary to improve overall systolic blood pressure control. We will continue to check serial EKGs and therefore will check a repeat EKG in the morning. 2. Would check fasting lipid panel for general stratification. 3. Check TSH. We will next check a 2D echo to further assess patient's ejection fraction, wall motion, and any major abnormalities. 5. Continue to follow the patient's blood pressure very closely. Thanks for allowing me to take part in the care of this patient. I will continue to follow her closely with you . Dictated By: Sparkle Reilly /jossie/ /Document#: [id number] ANGELIC
--- NOTE | 2017-05-18 15:58 | RADRPT ---
Echocardiogram Report Patient Name: FREDA MARTINEZ Gender: Female Date: 1980 Study Date: 18-May-2017 Men'S Designer: Hakeem [facility] Location: 2246 Ref. Physician: KAUR VARNER Quality: Technically Difficult Study Procedures: Transthoracic echocardiogram with complete 2D, M-Mode, and doppler examination. Indications: Hypertension. 2D/M Mode Doppler Measurement Value Normal Ranges Measurement Value Normal Ranges LVIDd 2D 5.0 3.5 - 5.6 cm AV Peak Byron 2.2 m/sec LVIDs 2D 2.5 2.1 - 4.1 cm AV Peak PG 18.0 mmHg FS 2D 50.1 % LVOT Peak Byron 1.4 m/sec LVPWd 2D 1.1 0.6 - 1.1 cm LVOT Peak PG 8.0 mmHg IVSd 2D 1.1 0.6 - 1.1 cm MV E Peak Byron 1.1 m/sec IVS/LVPW 2D 1.0 MV A Peak Byron 0.9 m/sec AoR Diam 2D 2.6 2.0 - 3.7 cm MV E/A 1.2 LA/Ao 2D 1 0 - 1 MV Decel Time 218 msec EDV 2D 126.0 cm3 MV E/A 1.2 ESV 2D 15.6 cm3 TR Peak Byron 3.3 m/sec LA Dimen 2D 3.4 2.3 - 4.0 cm TR Peak PG 43.0 mmHg RVSP 46.0 mmHg Findings Left Ventricle: Normal left ventricular systolic function. Normal left ventricular cavity size. Normal left ventricular wall thickness. Ejection fraction is visually estimated at 60 %. Tissue Doppler/Mitral Doppler indices are within normal limits. Right Ventricle: Normal right ventricular size. Normal right ventricular systolic function. Left Atrium: The left atrium is normal in size. Right Atrium: The right atrium is normal in size. Mitral Valve: Mild mitral leaflet calcification. Mild mitral annular calcification. Trace mitral regurgitation. Aortic Valve: Normal appearance of the aortic valve. No significant aortic stenosis or insufficiency. Tricuspid Valve: Normal appearance of the tricuspid valve. Estimated peak PA systolic pressure 46 mmHg. There is mild tricuspid regurgitation. Pericardium: Normal pericardium with no significant pericardial effusion. Aorta: Normal aortic root. IVC: Normal size and normal respiratory collapse consistent with normal right atrial pressure. Conclusions 1.Normal left ventricular systolic function. Normal left ventricular cavity size. Normal left ventricular wall thickness. Ejection fraction is visually estimated at 60 %. Tissue Doppler/Mitral Doppler indices are within normal limits. 2.Trace mitral regurgitation. 3.Normal appearance of the tricuspid valve. Estimated peak PA systolic pressure 46 mmHg. 4.There is mild tricuspid regurgitation. Electronically Signed By: Kaur Varner 18-May-2017 15:57:43 -0700 Patient Name: FREDA MARTINEZ Study Date: 18-May-2017 [id number]
[2017-05-18] MEDS: ACETAMINOPHEN 500 MG TAB PO PRN (19:39)
--- NOTE | 2017-05-18 20:53 | QN ---
Documentation Comment No complaint Afebrile BP improving with current medications AST and ALT improving Patient is off magnesium sulfate Continue care per Cardiology. TERI RIVERA MD May 18, 2017 20:53
[2017-05-19] MEDS: LACTATED RINGER'S 1,000 ML IV SCH ×2 (01:09→14:47)
[2017-05-19] MEDS: ACETAMINOPHEN 500 MG TAB PO PRN ×2 (03:44→17:33)
[2017-05-19 07:08] LABS: CHOL/HDL RATIO 6.4 RATIO
--- NOTE | 2017-05-19 08:22 | RADRPT ---
Vent Rate: 71 bpm RR Interval: 0 msec TX Interval: 130 msec QRS Duration: 98 msec QT Interval: 412 msec QTC Interval: 447 msec P-R-T [place]: 49 - 5 - 57 degrees Normal sinus rhythm Normal ECG Electronically Signed By: Ally Simon [id number]
[2017-05-19] MEDS: NIFEdipine (XL) 30 MG TAB PO SCH ×2 (09:31→21:01)
--- NOTE | 2017-05-19 14:10 | CONS ---
Date/Time of Note Date/Time of Note DATE: 05/19/17 TIME: 14:03 Assessment/Plan Assessment/Plan Chief Complaint/Hosp Course IMP: 1.HTN-overall improved 2.chest pain-Negative trop x 3/NL EF by echo/ NO sig abnl on ECG 3.Dyslipidemia Recc: -Continue provcardia XL -Slight increase to Hydralazine and will change dosing parameters to improve patient compliance Problems: Consultation Date/Type/Reason Admit Date/Time May 16, 2017 at 18:54 Initial Consult Date 05/18/2017 Type of Consultation: cardiology Reason for Consultation chest pain/HTN Referring Provider: TERI RIVERA MD Exam/Review of Systems Vital Signs Vitals Vital Signs Date Time Temp Pulse Resp B/P Pulse Ox O2 Delivery O2 Flow Rate FiO2 05/17/17 06:29 98.0 66 18 155/93 97 Room Air Intake and Output 05/18/17 05/18/17 05/19/17 15:00 23:00 07:00 Intake Total 1025 ml 850 ml 1000 ml Output Total 1200 ml 700 ml 1200 ml Balance -175 ml 150 ml -200 ml Exam Review of Systems: CONSTITUTIONAL: No fevers, chills. PULMONARY: No sob CARDIOVASCULAR: No chest pain/palpitations GASTROINTESTINAL: No nausea/vomiting. GENITOURINARY: No hematuria/dysuria. MUSCULOSKELETAL: No myagias/arthalgias. PSYCHIATRIC: The patient denies depression. NEUROLOGIC: No weakness Constitutional: alert Psych: no complaints Head: normocephalic ENMT: mucosa pink and moist Neck: jvd (9 cm water), supple Respiratory: diminished breath sounds Cardiovascular: regular rate and rhythm Gastrointestinal: non-tender, soft Musculoskeletal: muscle tone (n ormal) Extremities: edema (none) Neurological: other (No focal deficits) Results Result Diagram: 05/18/17 0636 05/18/17 0636 Results 24 hrs Laboratory Tests Test 05/18/17 18:00 05/19/17 00:41 05/19/17 05:54 Magnesium Level 3.5 #H Troponin I < 0.012 < 0.012 Triglycerides Level 209 H Cholesterol Level 194 LDL Cholesterol, Calculated 122 HDL Cholesterol 30 L Cholesterol/HDL Ratio 6.4 Medications Medications Current Medications Lactated Ringer's (Lr) 1,000 ml @ 75 mls/hr [id number] IV Last administered on 01:09; Admin Dose 75 MLS/HR; Start 05/16/17 at 21:00 Ondansetron HCl (Zofran Inj) 4 mg Q6H PRN IV NAUSEA AND/OR VOMITING; Start 05/16 at 21:00 Acetaminophen (Tylenol Tab) 1,000 mg Q6H PRN PO PAIN AND OR ELEVATED TEMP Last administered on 05/19/17 03:44; Admin Dose 1,000 MG; Start 05/16/17 at 22:30 Hydralazine HCl (Apresoline) 50 mg Q6 PO Last administered on 05/19/17 12:31; Admin Dose 50 MG; Start 05/18/17 at 06:00 Nifedipine (Procardia Xl) 30 mg BID PO Last administered on 05/19/17 09:31; Admin Dose 30 MG; Start 05/18/17 at 09:00 Hydralazine HCl (Apresoline) 10 mg Q6H PRN IV SBP>170 DBP>100; Start 05/18/17 at 13:30 KAUR CHAVARRIA May 19, 2017 14:10
--- NOTE | 2017-05-19 23:04 | QN ---
Documentation Comment No complaint Afebrile BP 140's-150's/ 80's-90's Continue care per Cardiology, TERI RIVERA MD May 19, 2017 23:04
[2017-05-20] MEDS: NIFEdipine (XL) 30 MG TAB PO SCH ×2 (08:55→20:23)
[2017-05-20] MEDS ORDERED: PRENATAL VITAMIN PO SCH (09:00)
[2017-05-20 10:35] VITALS: BP 120/63; PULSE 74; RESP 16
[2017-05-20 12:00] VITALS: BP 114/70; RESP 16
--- NOTE | 2017-05-20 13:47 | CONS ---
Date/Time of Note Date/Time of Note DATE: 05/20/17 TIME: 13:44 Assessment/Plan Assessment/Plan Chief Complaint/Hosp Course IMP: 1.HTN-well controlled 2.chest pain-Negative trop x 3/NL EF by echo/ NO sig abnl on ECG 3.Dyslipidemia Recc: -Continue provcardia XL/hydralazine -If BP remains stable then d/c planing with outpatient f/u 2-3 weeks Problems: Consultation Date/Type/Reason Admit Date/Time May 16, 2017 at 18:54 Initial Consult Date 05/18/2017 Type of Consultation: cardiology Reason for Consultation HTN Referring Provider: TERI RIVERA MD Exam/Review of Systems Vital Signs Vitals Vital Signs Date Time Temp Pulse Resp B/P Pulse Ox O2 Delivery O2 Flow Rate FiO2 05/20/17 12:00 98.0 16 114/70 Room Air 05/20/17 10:35 74 05/17/17 06:29 97 Intake and Output 05/19/17 05/19/17 05/20/17 15:00 23:00 07:00 Intake Total 1150 ml 600 ml Output Total 1200 ml 900 ml Balance -50 ml -300 ml Exam Review of Systems: CONSTITUTIONAL: No fevers, chills. PULMONARY: No sob CARDIOVASCULAR: No chest pain/palpitations GASTROINTESTINAL: No nausea/vomiting. GENITOURINARY: No hematuria/dysuria. MUSCULOSKELETAL: No myagias/arthalgias. PSYCHIATRIC: The patient denies depression. NEUROLOGIC: No weakness Constitutional: alert Psych: no complaints Head: normocephalic ENMT: mucosa pink and moist Neck: jvd (9 cm water), supple Respiratory: diminished breath sounds (at bases/B) Cardiovascular: regular rate and rhythm Gastrointestinal: non-tender, soft Musculoskeletal: muscle tone (normal) Extremities: edema (none) Neurological: other (No focal deficits) Results Result Diagram: 05/18/1736 05/18/1736 Medications Medications Current Medications Ondansetron HCl (Zofran Inj) 4 mg Q6H PRN IV NAUSEA AND/OR VOMITING; Start 05/16 at 21:00 Acetaminophen (Tylenol Tab) 1,000 mg Q6H PRN PO PAIN AND OR ELEVATED TEMP Last administered on 05/19/17t 17:33; Admin Dose 1,000 MG; Start 05/16/17 at 22:30 Nifedipine (Procardia Xl) 30 mg BID PO Last administered on 05/20/17 08:55; Admin Dose 30 MG; Start 05/18/17 at 09:00 Hydralazine HCl (Apresoline) 10 mg Q6H PRN IV SBP>170 DBP>100; Start 05/18/17 at 13:30 Hydralazine HCl (Apresoline) 75 mg Q8 PO Last administered on 05/20/17 06:10; Admin Dose 75 MG; Start 05/19/17 at 22:00 KAUR CHAVARRIA May 20, 2017 13:47
[2017-05-20 14:00] VITALS: BP 128/76; PULSE 89; RESP 18
[2017-05-20 16:40] VITALS: BP 129/72; PULSE 75; RESP 18
--- NOTE | 2017-05-21 04:38 | DS ---
DATE OF ADMISSION: 05/16/2017 DATE OF DISCHARGE: 05/20/2017 ADMITTING DIAGNOSIS: preeclampsia. HISTORY OF PRESENT ILLNESS: This is a 37-year-old female, 4, para 3-0-1-3, status post repeat on May 09, 2017, who presents to the emergency department with a complaint of high blood pressure. On admission, the patient had systolic blood pressures in the 180s. The patient was admitted on May 16, 2017. The patient was started on intravenous magnesium sulfate for seizure prophylaxis. The patient was also given hydralazine to control her blood pressure. Work-up included a 24-hour urine collection, which gave a total protein greater than 3000. The patient's liver enzymes were also elevated. After the patient's liver enzymes improved, the magnesium sulfate was discontinued. The patient's dose of hydralazine was increased. The patient was also given Procardia to control her blood pressure. Cardiology consultation was obtained. The patient had a cardiac evaluation. The patient's blood pressure improved on May 20, 2017. The patient was cleared for discharge by software development manager zeke. DISCHARGE CONDITION: Stable. DISCHARGE INSTRUCTIONS: Diet is regular. Activities: Pelvic rest, and no strenuous activities. DISCHARGE MEDICATIONS: 1. Hydralazine 75 mg 3 times a day. 2. Procardia XL 30 mg twice a day. 3. Continue with vitamins. FOLLOW-UP: Follow up in office in 2 weeks. FINAL DIAGNOSIS: preeclampsia with severe features. Dictated By: Martin Delgado MD /[email or web address] /Document#: [id number]
== END 2017-05-20 21:00 | disposition home or self-care (01) | DRG 776 ==
LOC: E/R 15:18 → OBG 18:54
PROVIDERS: ADMIT Obstetrics & Gynecology; ATTEND Obstetrics & Gynecology
DX: O14.95 Unspecified pre-eclampsia, complicating the puerperium (principal); O99.43 Diseases of the circulatory system complicating the puerperium; O90.89 Other complications of the puerperium, not elsewhere classified; O90.81 Anemia of the puerperium; R51 Headache; I49.8 Other specified cardiac arrhythmias; R07.9 Chest pain, unspecified; E78.5 Hyperlipidemia, unspecified
CPT/HCPCS: 76856; 80053; 80061; 81001; 82575; 83735; 84156; 84443; 84484; 84560; 85025; 85610; 85730; 87086; 93005; 93306; 96365; 96366; 96375; J0360; J3475; J7120